=== PATIENT | male | born 1985 | race Caucasian/White ===

== ENCOUNTER 2021-12-14 21:40 | Emergency (ER) | payer SELFPAY ==
[2021-12-14 22:29] LABS: ANION GAP 16.8 mEq/L (7-13); CHLORIDE,CL 100 mmol/L (98-107); SODIUM,NA 138 mmol/L (136-145)
== END 2021-12-14 23:25 | disposition home or self-care (01) ==
LOC: DL.ED 21:40
DX: R55 Syncope and collapse (principal)
CPT/HCPCS: 36415; 80053; 80307; 84484; 85025; 93005; 93010; 99283; 99284-25